=== PATIENT | female | born 1965 | race Caucasian/White ===

== ENCOUNTER 2019-04-15 14:52 | Emergency (ER) | payer OTHER ==
[~2019-04-15] VITALS: Ht 160 cm; Wt 82.0 kg
[2019-04-15] MEDS ORDERED: HYDROCODONE/ACETAMINOPHEN 5/325MG TABLET PO STA (15:39)
[2019-04-15] MEDS ORDERED: LIDOCAINE HCL/PF 1% 10 MG/ML 5ML VIAL IJ ONE (17:30)
[2019-04-15] MEDS ORDERED: BACITRACIN ZINC OINT UDPKT TOP ONE (17:30)
[2019-04-15] MEDS ORDERED: KETOROLAC 60MG/2ML VIAL IM STA (18:51)
[2019-04-15 20:12] VITALS: BP 146/79
== END 2019-04-15 20:13 | disposition home or self-care (01) ==
LOC: ER 14:52
DX: S01.81XA Laceration without foreign body of other part of head, initial encounter (principal); S39.012A Strain of muscle, fascia and tendon of lower back, initial encounter; S20.219A Contusion of unspecified front wall of thorax, initial encounter; S16.1XXA Strain of muscle, fascia and tendon at neck level, initial encounter; I10 Essential (primary) hypertension; V49.49XA Driver injured in collision with other motor vehicles in traffic accident, initial encounter; Y93.89 Activity, other specified; Y92.89 Other specified places as the place of occurrence of the external cause; Y99.8 Other external cause status
CPT/HCPCS: 12013; 70450; 71045; 72100; 72125; 96372; 99284; A4217; J1885; J3490; Z7610

== ENCOUNTER 2019-04-17 18:30 | Emergency (ER) | payer OTHER ==
[~2019-04-17] VITALS: Ht 152.4 cm; Wt 84.0 kg
[2019-04-17 19:10] VITALS: BP 129/73
== END 2019-04-17 20:24 | disposition home or self-care (01) ==
LOC: ER 18:30
DX: Z48.00 Encounter for change or removal of nonsurgical wound dressing (principal)
CPT/HCPCS: 99281

== ENCOUNTER 2019-04-20 15:04 | Emergency (ER) | payer OTHER ==
[~2019-04-20] VITALS: Ht 152.4 cm; Wt 73.6 kg
[2019-04-20 20:22] VITALS: BP 125/70
== END 2019-04-20 20:23 | disposition home or self-care (01) ==
LOC: ER 15:04
DX: S01.81XD Laceration without foreign body of other part of head, subsequent encounter (principal); L03.818 Cellulitis of other sites; I10 Essential (primary) hypertension; X58.XXXD Exposure to other specified factors, subsequent encounter
CPT/HCPCS: 99283; Z7610

== ENCOUNTER 2019-04-22 20:10 | Emergency (ER) | payer OTHER ==
[~2019-04-22] VITALS: Ht 152.4 cm; Wt 74.0 kg
[2019-04-23 02:10] VITALS: BP 133/74
== END 2019-04-23 02:47 | disposition home or self-care (01) ==
LOC: ER 20:10
DX: Z48.02 Encounter for removal of sutures (principal); I10 Essential (primary) hypertension
CPT/HCPCS: 99281